=== PATIENT | female | born 1965 | race Two or more races ===

== ENCOUNTER 2019-02-23 21:03 | Emergency (ER) | payer MEDICAID ==
[~2019-02-23] VITALS: Ht 152.4 cm; Wt 81.6 kg
[2019-02-23 21:05] VITALS: BP 141/80
--- NOTE | 2019-02-23 21:05 | NUR ---
ED Nurse Note: Pt arrived ED from home, c/o right noserial with a heavy bleeding today. Pt is A/O X 4, Vital signs stable at this time, waiting for orders.
--- NOTE | 2019-02-23 21:06 | NUR ---
ED Nurse Note: Pt arrived ED from home by Ambulance, c/o right noserial with a heavy bleeding today. Pt is A/O X 4, Vital signs stable at this time, waiting for orders.
--- NOTE | 2019-02-23 21:20 | Emergency Room Report ---
History of Present Illness General Chief Complaint: Nosebleed Source: Patient Present Illness HPI Patient presents with complaints of epistaxis Reports that last Monday she had gone to an emergency room the bleeding stopped by itself However she has had several episodes since then of bleeding which stopped by itself this evening she again started having epistaxis And presents to the ER denies any headache denies any chest pain she does feel some lightheadedness when the bleeding starts denies any previous medications denies any chest pain or shortness of breath denies any fall or trauma The very initial episode patient had started to eat and essentially started having epistaxis at that time Allergies: Coded Allergies: No Known Allergies (Unverified , 02/23/19) Patient History Past Medical History: see triage record Pertinent Family History: none Now: No Reviewed Nursing Documentation: PMH: Agreed; PSxH: Agreed Nursing Documentation-PMH Past Medical History: No Stated History Review of Systems All Other Systems: negative except mentioned in HPI Physical Exam Vital Signs Date Time Temp Pulse Resp B/P (MAP) Pulse Ox O2 Delivery O2 Flow Rate FiO2 02/23/19 21:00 80 16 140/82 (101) 99 Room Air Sp02 EP Interpretation: reviewed, normal General Appearance: well appearing, no apparent distress Head: normocephalic, atraumatic Eyes: bilateral eye PERRL, bilateral eye EOMI ENT: hearing grossly normal, TMs + canals normal, other - Anterior bleeding from the left anterior nasal nare area Neck: full range of motion, supple, no meningismus, no bony tend Respiratory: lungs clear, normal breath sounds, no rhonchi, no respiratory distress, no retraction, no accessory muscle use Cardiovascular #1: normal peripheral pulses, regular rate, rhythm, no edema, no gallop, no JVD, no murmur Gastrointestinal: normal bowel sounds, non tender, soft, no mass, no organomegaly, non-distended, no guarding, no hernia, no pulsatile mass, no rebound Genitourinary: no CVA tenderness Musculoskeletal: normal inspection Neurologic: oriented x3, responsive, meat trimmer III-XII nml as tested, motor strength/ tone normal, sensory intact Psychiatric: mood/affect normal Skin: normal color, no rash, warm/dry, palpation normal Lymphatic: normal inspection, no adenopathy Procedures Additional Procedure Procedure Narrative Patient appears to have persistent epistaxis from the right anterior nare Given this patient required packing in the right side a 5.5 cm anterior nasal packing was used I had the patient blow out her nose After this in the usual fashion the packing was placed patient tolerated procedure well total of 3 cc of air were inflated into the balloon Patient observed and did well after the procedure Medical Decision Making Diagnostic Impression: Primary Impression: Epistaxis ER Course Given the presentation and the long-standing report of epistaxis blood work was initiated coagulation studies are normal patient's hemoglobin is mildly low However she has never had any testing previously to compare to given the packing patient was placed on antibiotics and requires repeat evaluation and removal in 3 days patient was encouraged to follow-up with primary physician Otherwise return here with changes Labs Test 02/23/19 21:36 White Blood Count 7.3 K/UL (4.8-10.8) Red Blood Count 3.35 M/UL (4.20-5.40) Hemoglobin 10.1 G/DL (12.0-16.0) Hematocrit 28.0 % (37.0-47.0) Mean Corpuscular Volume 84 FL (80-99) Mean Corpuscular Hemoglobin 30.2 PG (27.0-31.0) Mean Corpuscular Hemoglobin Concent 36.1 G/DL (32.0-36.0) Red Cell Distribution Width 11.4 % (11.6-14.8) Platelet Count 200 K/UL (150-450) Mean Platelet Volume 7.2 FL (6.5-10.1) Neutrophils (%) (Auto) 59.4 % (45.0-75.0) Lymphocytes (%) (Auto) 30.0 % (20.0-45.0) Monocytes (%) (Auto) 5.8 % (1.0-10.0) Eosinophils (%) (Auto) 3.7 % (0.0-3.0) Basophils (%) (Auto) 1.1 % (0.0-2.0) Prothrombin Time 10.3 SEC (9.30-11.50) Prothromb Time International Ratio 1.0 (0.9-1.1) Activated Partial Thromboplast Time 26 SEC (23-33) Sodium Level 145 MMOL/L (136-145) Potassium Level 3.6 MMOL/L (3.5-5.1) Chloride Level 109 MMOL/L (98-107) Carbon Dioxide Level 24 MMOL/L (21-32) Anion Gap 12 mmol/L (5-15) Blood Urea Nitrogen 15 mg/dL (7-18) Creatinine 0.8 MG/DL (0.55-1.30) Estimat Glomerular Filtration Rate > 60 mL/min (>60) Glucose Level 116 MG/DL (74-106) Calcium Level 9.2 MG/DL (8.5-10.1) Total Bilirubin 0.7 MG/DL (0.2-1.0) Aspartate Amino Transf (AST/SGOT) 30 U/L (15-37) Alanine Aminotransferase (ALT/SGPT) 38 U/L (12-78) Alkaline Phosphatase 125 U/L (46-116) Total Protein 7.8 G/DL (6.4-8.2) Albumin 3.8 G/DL (3.4-5.0) Globulin 4.0 g/dL Albumin/Globulin Ratio 0.9 (1.0-2.7) Last Vital Signs Date Time Temp Pulse Resp B/P (MAP) Pulse Ox O2 Delivery O2 Flow Rate FiO2 02/23/19 21:00 80 16 140/82 (101) 99 Room Air Status: improved Disposition: HOME, SELF-CARE Condition: Improved Scripts Amoxicillin/Potassium Clav 875-125* (AUGMENTIN 875-125 TABLET*) 1 Each Tablet 1 TAB ORAL TWICE A DAY, #10 TAB Prov: Neftaly Quiles DO 02/23/19 Additional Instructions: Patient is provided with the discharge instructions notified to follow up with primary doctor in the next 2-3 days otherwise return to the er with any worsening symptoms. Please note that this report is being documented using [employer] technology. This can lead to erroneous entry secondary to incorrect interpretation by the dictating instrument. Neftaly Quiles DO Feb 23, 2019 21:20
--- NOTE | 2019-02-23 21:39 | NUR ---
ED Nurse Note: Blood sample collected and sent to Lab.
--- NOTE | 2019-02-23 21:45 | NUR ---
ED Nurse Note: " Rapid Rhino Epistaxis" was applied by Dr. Quiles.
[2019-02-23 21:48] LABS: BASOPHILS % (AUTO) 1.1 % (0.0-2.0); EOSINOPHILS % (AUTO) 3.7 % (0.0-3.0); HEMOGLOBIN 10.1 G/DL (12.0-16.0); MEAN CORPUSCULAR VOLUME 84 FL (80-99); MONOCYTES % (AUTO) 5.8 % (1.0-10.0); NEUTROPHILS % (AUTO) 59.4 % (45.0-75.0); PLATELET COUNT 200 K/UL (150-450); RED BLOOD COUNT 3.35 M/UL (4.20-5.40); RED CELL DISTRIBUTION WIDTH 11.4 % (11.6-14.8); WHITE BLOOD COUNT 7.3 K/UL (4.8-10.8)
[2019-02-23 21:58] LABS: ANION GAP 12 mmol/L (5-15); BLOOD UREA NITROGEN 15 mg/dL (7-18); CALCIUM 9.2 MG/DL (8.5-10.1); CARBON DIOXIDE 24 MMOL/L (21-32); CHLORIDE 109 MMOL/L (98-107); CREATININE 0.8 MG/DL (0.55-1.30); POTASSIUM 3.6 MMOL/L (3.5-5.1); SODIUM 145 MMOL/L (136-145)
[2019-02-23] MEDS ORDERED: Augmentin 875mg Tab ORAL ONE (22:00)
[2019-02-23 22:03] LABS: ALANINE AMINOTRANSFERASE 38 U/L (12-78); ALBUMIN 3.8 G/DL (3.4-5.0); ALBUMIN/GLOBULIN RATIO 0.9 (1.0-2.7); ALKALINE PHOSPHATASE 125 U/L (46-116); ASPARTATE AMINO TRANSFERASE 30 U/L (15-37); BILIRUBIN,TOTAL 0.7 MG/DL (0.2-1.0)
--- NOTE | 2019-02-23 22:41 | NUR ---
ED Nurse Note: No bleeding was notied at this time, will continue to monitor.
[2019-02-23] MEDS ORDERED: AUGMENTIN 875-1 EAC1 ORAL (22:42)
[2019-02-23 23:12] VITALS: BP 143/81
--- NOTE | 2019-02-23 23:27 | NUR ---
ER DISCHARGE NOTE: Patient is cleared to be discharged per Dr. Quiles. Pt is aox4 on room air with stable vital signs. Pt was given dc and prescription instructions and was able to verbalize understanding. Pt's ID band removed . Pt is able to ambulate with steady gait and took all belongings. Accompanied by her daughter.
== END 2019-02-23 23:12 | disposition home or self-care (01) ==
LOC: EDBD 21:03 → EMR 22:14
DX: R04.0 Epistaxis (principal)
CPT/HCPCS: 36415; 80053; 85025; 85610; 85730; 99284

== ENCOUNTER 2019-02-25 10:41 | Emergency (ER) | payer MEDICAID ==
[~2019-02-25] VITALS: Ht 157.5 cm; Wt 68.0 kg
[~2019-02-25 10:41] MED LIST: AUGMENTIN 875-1 EAC1 ORAL
--- NOTE | 2019-02-25 11:20 | NUR ---
ED Nurse Note:pt. came with nose bleed for 1 week, she has packing in right nosedrill, A/Ox4 ambulatory
[2019-02-25 11:49] VITALS: BP 124/59
--- NOTE | 2019-02-25 12:07 | NUR ---
ED Nurse Note:only contact with pt to give dc aci to pt and family amb steady gait out of ed. aware and agrees to f/u plan
[2019-02-25 12:08] VITALS: BP 121/60
--- NOTE | 2019-02-25 14:07 | Emergency Room Report ---
History of Present Illness General Chief Complaint: Nosebleed Source: Patient Present Illness HPI Patient was here recently with epistaxis of the right nose had packing placed Patient had noticed a small clot that she had coughed up earlier this morning otherwise has been doing well denies any active bleeding and presented for evaluation denies any chest pain denies any vomiting or diarrhea Denies any focal weakness Allergies: Coded Allergies: No Known Allergies (Unverified , 02/23/19) Patient History Past Medical History: see triage record Pertinent Family History: none Reviewed Nursing Documentation: PMH: Agreed; PSxH: Agreed Nursing Documentation-PMH Past Medical History: No Stated History Review of Systems All Other Systems: negative except mentioned in HPI Physical Exam Vital Signs Date Time Temp Pulse Resp B/P (MAP) Pulse Ox O2 Delivery O2 Flow Rate FiO2 02/25/19 10:45 97.5 75 16 124/59 (80) 96 Room Air Sp02 EP Interpretation: reviewed, normal General Appearance: well appearing, no apparent distress Head: normocephalic, atraumatic Eyes: bilateral eye PERRL, bilateral eye EOMI ENT: other - Some dried blood around the packing region, no active bleeding Neck: supple Respiratory: lungs clear, normal breath sounds, no rhonchi Cardiovascular #1: regular rate, rhythm Gastrointestinal: non tender, soft Musculoskeletal: normal inspection, back normal Neurologic: alert, oriented x3, responsive Skin: normal color, no rash Lymphatic: no adenopathy Medical Decision Making Diagnostic Impression: Primary Impression: Epistaxis Additional Impression: wound check ER Course Patient presents for reevaluation of the nasal packing No active bleeding is visualized patient tolerating well will finish her course of antibiotics And will return in 2 days for removal of the packing if not able to obtain appropriate outpatient follow-up Last Vital Signs Date Time Temp Pulse Resp B/P (MAP) Pulse Ox O2 Delivery O2 Flow Rate FiO2 02/25/19 12:08 76 16 121/60 96 Room Air 02/25/19 11:49 97.5 Status: unchanged Disposition: HOME, SELF-CARE Condition: Stable Referrals: NOT CHOSEN IPA/MD,REFERRING (PCP) Patient Instructions: Wound Check, Nosebleed, Ssvo-su-Stpt Additional Instructions: Patient is provided with the discharge instructions notified to follow up with primary doctor in the next 2-3 days otherwise return to the er with any worsening symptoms. Please note that this report is being documented using [employer] technology. This can lead to erroneous entry secondary to incorrect interpretation by the dictating instrument. Neftaly Quiles DO Feb 25, 2019 14:07
== END 2019-02-25 12:09 | disposition home or self-care (01) ==
LOC: EMR 11:30
DX: R04.0 Epistaxis (principal)
CPT/HCPCS: 99283; Z7502

== ENCOUNTER 2019-02-27 07:13 | Emergency (ER) | payer MEDICAID ==
[~2019-02-27] VITALS: Ht 157.5 cm; Wt 72.6 kg
[2019-02-27] MEDS ORDERED: IBUPROFEN600 MG ORAL (07:27)
--- NOTE | 2019-02-27 07:27 | NUR ---
ED Nurse Note: Pt came in from home for epistaxis since 02/23/19 on R nare, came to [facility] and treated with nasal packing. Pt came back today for check up. Pain 5/10 emilia. AOx4, VSS emilia. Will cont to monitor.
[2019-02-27] MEDS ORDERED: Neosporin Oint Ud Pkt TOPIC ONE (07:30)
[2019-02-27 07:35] LABS: BASOPHILS % (AUTO) 0.7 % (0.0-2.0); EOSINOPHILS % (AUTO) 5.2 % (0.0-3.0); HEMATOCRIT 30.4 % (37.0-47.0); HEMOGLOBIN 10.7 G/DL (12.0-16.0); LYMPHOCYTES % (AUTO) 22.3 % (20.0-45.0); MEAN CORPUSCULAR VOLUME 86 FL (80-99); MONOCYTES % (AUTO) 4.5 % (1.0-10.0); NEUTROPHILS % (AUTO) 67.3 % (45.0-75.0); PLATELET COUNT 190 K/UL (150-450); RED BLOOD COUNT 3.54 M/UL (4.20-5.40); RED CELL DISTRIBUTION WIDTH 11.8 % (11.6-14.8); WHITE BLOOD COUNT 4.4 K/UL (4.8-10.8)
[2019-02-27 08:20] VITALS: BP 119/79
--- NOTE | 2019-02-27 08:20 | NUR ---
ER DISCHARGE NOTE: Patient is cleared to be discharged per ERMD, pt is aox4, on room air, with stable vital signs. pt was given dc and prescription instructions, pt was able to verbalize understanding, pt id band removed. pt is able to ambulate with steady gait. pt took all belongings.
--- NOTE | 2019-02-27 11:47 | Emergency Room Report ---
History of Present Illness General Chief Complaint: Nosebleed Source: Patient Present Illness HPI Patient was here recently with nasal packing and right-sided epistaxis returns today as instructed for removal if not able to follow outpatient Patient has not been able to make outpatient follow-up and returns reports that intermittently had small clot that was coughed up from the right side however More recently appears to have stopped denies any headache she reports some lightheadedness with standing Denies any vomiting or diarrhea denies any fevers or chills Allergies: Coded Allergies: No Known Allergies (Unverified , 02/23/19) Patient History Past Medical History: see triage record Pertinent Family History: none Reviewed Nursing Documentation: PMH: Agreed; PSxH: Agreed Nursing Documentation-PMH Past Medical History: No Stated History Review of Systems All Other Systems: negative except mentioned in HPI Physical Exam Vital Signs Date Time Temp Pulse Resp B/P (MAP) Pulse Ox O2 Delivery O2 Flow Rate FiO2 02/27/19 07:21 97.5 76 16 127/64 (85) 95 Room Air Sp02 EP Interpretation: reviewed, normal General Appearance: well appearing, no apparent distress Head: normocephalic, atraumatic Eyes: bilateral eye PERRL, bilateral eye EOMI ENT: other - Packing in place in the right nasal nare. No active bleeding is seen some crusted blood is visible Neck: supple Respiratory: lungs clear, no respiratory distress Cardiovascular #1: regular rate, rhythm Gastrointestinal: non tender, soft Musculoskeletal: normal inspection Neurologic: alert, oriented x3 Skin: no rash, warm/dry Lymphatic: no adenopathy Medical Decision Making Diagnostic Impression: Primary Impression: Epistaxis ER Course Patient's hemoglobin was rechecked to confirm lack of any large amount of bleeding Patient had several steps taken here including deflating the balloon on the packing after that the area was Rinsed with saline And ointment was also placed to improve breaking up the scab formation After these measures the packing was removed in the usual fashion Patient tolerated the procedure well Repeat exam reveals appropriate findings there is no active bleeding patient does not feel any trickling of blood in the back of her throat Initially reported that the contacts for the clinics provided were not working Those phone numbers were checked by myself here in the do go to the appropriate clinics Patient was encouraged to follow closely for ENT specialty follow-up Labs Test 02/27/19 07:27 White Blood Count 4.4 K/UL (4.8-10.8) Red Blood Count 3.54 M/UL (4.20-5.40) Hemoglobin 10.7 G/DL (12.0-16.0) Hematocrit 30.4 % (37.0-47.0) Mean Corpuscular Volume 86 FL (80-99) Mean Corpuscular Hemoglobin 30.2 PG (27.0-31.0) Mean Corpuscular Hemoglobin Concent 35.2 G/DL (32.0-36.0) Red Cell Distribution Width 11.8 % (11.6-14.8) Platelet Count 190 K/UL (150-450) Mean Platelet Volume 8.3 FL (6.5-10.1) Neutrophils (%) (Auto) 67.3 % (45.0-75.0) Lymphocytes (%) (Auto) 22.3 % (20.0-45.0) Monocytes (%) (Auto) 4.5 % (1.0-10.0) Eosinophils (%) (Auto) 5.2 % (0.0-3.0) Basophils (%) (Auto) 0.7 % (0.0-2.0) Last Vital Signs Date Time Temp Pulse Resp B/P (MAP) Pulse Ox O2 Delivery O2 Flow Rate FiO2 02/27/19 08:20 97.5 71 16 119/79 95 Room Air Status: improved Disposition: HOME, SELF-CARE Condition: Improved Referrals: NOT CHOSEN IPA/,REFERRING (PCP) [facility] [place] [facility] ER - Peds ER - Patient Instructions: Nosebleed, [id number] Additional Instructions: Patient is provided with the discharge instructions notified to follow up with primary doctor in the next 2-3 days otherwise return to the er with any worsening symptoms. Please note that this report is being documented using [employer] technology. This can lead to erroneous entry secondary to incorrect interpretation by the dictating instrument. Neftaly Quiles DO Feb 27, 2019 11:47
== END 2019-02-27 08:20 | disposition home or self-care (01) ==
LOC: EMR 07:26
DX: R04.0 Epistaxis (principal)
CPT/HCPCS: 36415; 85025; 99282